=== PATIENT | female | born 1995 | race Caucasian/White ===

== ENCOUNTER 2024-07-03 09:21 | Emergency (ER) | payer SELFPAY ==
[2024-07-03] MEDS ORDERED: Sodium Chloride 0.9% 10 ML Syringe FLUSH PRN (10:23)
[2024-07-03] MEDS: fentaNYL 100 MCG/2 ML SDV IVPUSH PRN (10:35)
[2024-07-03] MEDS: fentaNYL 100 MCG/2 ML SDV IM ONE (10:39)
[2024-07-03 10:50] LABS: BASOPHILS PERCENT AUTO 0.1 % (0.0-1.0); EOSINOPHILS ABSOLUTE AUTO 0.1 K/mm3 (0.0-0.4); EOSINOPHILS PERCENT AUTO 0.6 % (0.0-6.0); HEMATOCRIT 40.8 % (37.0-47.0); HEMOGLOBIN 13.9 gm/dl (12.0-16.0); IMMATURE GRAN ABSOLUTE AUTO 0.08 K/mm3 (0.00-0.05); IMMATURE GRAN PERCENT AUTO 0.6 % (0.0-0.4); LYMPHOCYTES ABSOLUTE AUTO 2.7 K/mm3 (1.0-4.8); LYMPHOCYTES PERCENT AUTO 18.9 % (24.0-44.0); MEAN CORPUSCULAR HEMOGLOBIN 28.4 pg (28.0-32.0); MEAN CORPUSCULAR HGB CONC 34.1 g/dl (32.0-36.0); MEAN CORPUSCULAR VOLUME 83.3 fl (83.0-99.0); MONOCYTES ABSOLUTE AUTO 0.8 K/mm3 (0.0-0.8); MONOCYTES PERCENT AUTO 5.8 % (0.0-8.0); NEUTROPHILS ABSOLUTE AUTO 10.6 K/mm3 (1.8-7.7); PLATELET COUNT,PLT 409 K/mm3 (150-400); WHITE BLOOD CELL COUNT,WBC 14.36 K/mm3 (3.9-11.3)
[2024-07-03 11:09] LABS: A/G RATIO 0.8 (1-2); ALBUMIN 3.7 g/dl (3.4-5.0); ANION GAP 11.7 (5-15); BILIRUBIN TOTAL 0.8 mg/dL (0.2-1.0); C-REACTIVE PROTEIN 3.06 mg/dL (<0.30); CALCIUM 9.1 mg/dL (8.5-10.1); CREATININE 0.8 mg/dL (0.55-1.02); EST CRCL DRUG DOSING (CG) 85.83 mL/min; POTASSIUM,K 3.7 mEq/L (3.5-5.1); PROTEIN TOTAL,TP 8.1 g/dl (6.4-8.2)
== END 2024-07-03 17:41 | disposition home or self-care (01) ==
LOC: JD.ED 09:21
DX: M76.02 Gluteal tendinitis, left hip (principal); Z91.048 Other nonmedicinal substance allergy status; Z91.040 Latex allergy status
CPT/HCPCS: 36415; 73502; 73721; 80053; 84703; 85025; 86140; 96374; 96376; 99284; J3010; 99283

== ENCOUNTER 2024-10-14 21:55 | Emergency (ER) | payer SELFPAY | END 2024-10-15 02:58 | disposition home or self-care (01) | LOC: JD.ED 21:55 | DX: R22.42 Localized swelling, mass and lump, left lower limb (principal); Z91.02 Food additives allergy status; Z91.040 Latex allergy status | CPT/HCPCS: 93970; 93970-26; 99283 ==